=== PATIENT | female | born 1930 | race Two or more races ===

== ENCOUNTER → 2016-09-14 | Outpatient (CLI) | payer MEDICAID, MEDICARE, OTHER ==
[~2016-09-14] MED LIST: ACIPHEX20 MG ORAL; ADVIL200 M2 ORAL; ALBUTEROL2.5 MG/3 M INH; AMLODIPINE BES2.5 MG ORAL; ATORVASTATIN CA10 MG ORAL; COLACE100 MG ORAL; COREG25 MG PO; GUAIFENESIN-CO118 M1 ORAL; LEVOFLOXACIN500 MG ORAL; LORATADINE10 M1 PO; MONTELUKAST SOD10 MG PO; OMEPRAZOLE20 M2 ORAL; PROMETHAZINE-C118 M1 ORAL; TESSALON PERLE100 M2 ORAL; ZITHROMAX250 MG ORAL
--- NOTE | 2016-09-15 16:02 | Diagnostic Imaging Report ---
Indication: Chest pain Comparison: 04/20/15 2 views of the chest obtained. No definite infiltrate or pulmonary vascular congestion identified. The heart is enlarged. The aorta is mildly enlarged consistent with atherosclerotic vascular disease. The bones are osteopenic. Impression: No acute disease
== END | disposition home or self-care (01) ==
LOC: RAD 15:59
DX: J20.9 Acute bronchitis, unspecified (principal)
CPT/HCPCS: 71020

== ENCOUNTER 2018-03-23 00:22 | Emergency (ER) | payer MEDICARE, MEDICAID ==
[~2018-03-23] VITALS: Ht 152.4 cm; Wt 68.9 kg
[~2018-03-23 00:22] MED LIST changes: +ALBUTEROL2.5 MG/3 M HHN; +DALIRESP500 MCG PO; +LEVOCETIRIZINE D5 MG ORAL; +PREDNISONE20 MG ORAL; +TAMIFLU75 MG ORAL; +TESSALON PERLE100 MG ORAL
[2018-03-23 01:16] VITALS: BP 154/77
[2018-03-23 03:03] VITALS: BP 154/77
--- NOTE | 2018-03-23 04:41 | Emergency Room Report ---
History of Present Illness General Chief Complaint: General Complaint Present Illness Allergies: Coded Allergies: ASPIRIN (Verified Allergy, Severe, unknown, 10/18/12) Nursing Documentation-PMH Hx Cardiac Problems: Yes - High cholesterol Hx Hypertension: Yes Hx Asthma: Yes Hx Gastrointestinal Problems: Yes - Cholecystectomy Hx Cerebrovascular Accident: No Hx Transient Ischemic Attacks: No Hx Dementia: No Hx Alzheimer's Disease: No Hx Parkinson's Disease: No Hx Meningitis: No Hx Encephalitis: No Hx Seizures: No Hx Epilepsy: No Physical Exam Vital Signs Date Time Temp Pulse Resp B/P (MAP) Pulse Ox O2 Delivery O2 Flow Rate FiO2 03/23/18 01:08 98.2 85 16 154/77 95 Room Air 98.2 Medical Decision Making Diagnostic Impression: Primary Impression: No foreign body found on evaluation Last Vital Signs Date Time Temp Pulse Resp B/P (MAP) Pulse Ox O2 Delivery O2 Flow Rate FiO2 03/23/18 01:16 98.2 72 16 154/77 95 Room Air 98.2 Disposition: HOME, SELF-CARE Referrals: [facility],REFERRING (PCP) Patient Instructions: Nontoxic Ingestion Additional Instructions: Return for pain, vomiting or bloody stools. Francis Smith MD Mar 23, 2018 04:41
--- NOTE | 2018-03-23 11:03 | Diagnostic Imaging Report ---
Indication: Pain, suspected foreign body, drank water from broken drinking glass Technique: One view of the chest Comparison: 10/03/2017 Findings: No acute infiltrates, effusions, or congestion. Tortuous calcified aorta. Normal heart size. Upper mediastinum unremarkable. No radiopaque foreign body demonstrated. No extraluminal gas demonstrated Impression: No acute process. Negative for evidence of radiopaque foreign body
--- NOTE | 2018-03-23 11:06 | Diagnostic Imaging Report ---
Indication: Pain status post drinking water from broken drinking glass Technique: Supine view of the abdomen Comparison: none Findings: Bowel gas pattern is unremarkable. There are cholecystectomy clips. There are calcified injection granulomata in the bilateral hips. There are cholecystectomy clips. No definite radiopaque foreign body demonstrated. Impression: No evidence of radiopaque foreign body
== END 2018-03-23 03:03 | disposition home or self-care (01) ==
LOC: EMR 01:23
DX: Z03.89 Encounter for observation for other suspected diseases and conditions ruled out (principal); T18.9XXA Foreign body of alimentary tract, part unspecified, initial encounter
CPT/HCPCS: 71045; 74018; 99284